=== PATIENT | female | born 1935 | race Caucasian/White ===

== ENCOUNTER 2016-11-21 11:37 | Inpatient (IN) | payer MEDICARE, BC ==
[~2016-11-21] VITALS: Ht 165.1 cm; Wt 45.0 kg
[~2016-11-21 11:37] MED LIST: BIOT5000 PO; CALCTAB70 PO; DEXA4TAB PO; KEPP1000 PO; LEVE250 PO; LORA-474 PO; OCUVTAB4 PO; PANT40TA3 PO; PRAV20 PO; PROT40TA PO; WARF5TAB PO; ZONE100C4 PO; ZONI100C2 PO
[2016-11-21 11:49] VITALS: BP 140/82; PULSE 80; RESP 16; TEMP 98.2; O2SAT 100
[2016-11-21 11:53] VITALS: BP 140/82; PULSE 86; RESP 18; TEMP 98.1; O2SAT 100
--- NOTE | 2016-11-21 11:55 | PD ---
HPI Chief Complaint: Altered Mental Status Time Seen by Provider: 11:49 Travel History International Travel<30 days: No Contact w/Intl Traveler<30days: No Traveled to known affect area: No History of Present Illness HPI 81-year-old female with history of depression, psychosis, seizure disorder, cerebral edema, malignant neoplasm of the brain here for altered mental status. Patient had been a long-term resident at another facility and was recently transferred to [facility] within last 48 hours. Staff there states that patient has been altered, increasingly confused, talking to imaginary friend", constipated and refusing to take medications. Altered. Per family this is not her mental status baseline. Patient is alert to self, but not place or time and is unable to participate with history. She denies any complaints. Patient's daughter called and stated that patient was normal 2 days ago. Apparently she has a history of intracranial mass lesion status post cranial 2 years ago and recently found a small recurrence. She was supposed to start radiation therapy tomorrow. PFSH Past Medical History Hx Anticoagulant Therapy: Yes (COUMADIN) Asthma: No Anxiety: No Depression: No Heart Rhythm Problems: Yes (A FIB ) Cancer: Yes (LUNG/COLON ) Cardiovascular Problems: Yes (HEART MURMUR/ATRIAL FIBULATION NEW DX ) High Cholesterol: No Chest Pain: No Congestive Heart Failure: No COPD: No Cerebrovascular Accident: Yes (UNKNOWN) Diabetes: No Diminished Hearing: No Endocrine: No Gastrointestinal Disorders: Yes (COLON CA 1984 W COLECTOMY) Genitourinary: No Hepatitis: No Hiatal Hernia: No Immune Disorder: No Musculoskeletal: No Neurologic: Yes (SEIZURE, HX MIGRAINES WITH NAUSEA VOMITING) Psychiatric: No Reproductive: No Respiratory: Yes (LUNG CA 1994) Immunizations Current: Yes Migraines: Yes (NEW WITH NEOPLASM) Radiation Therapy: No Seizures: Yes (SEP 1108/2014 FIRST ONE EVER) Sleep Apnea: No Thyroid Disease: No Menopausal: Yes Past Surgical History Abdominal Surgery: Yes (COLON CA -COLECTOMY IN 1984) Appendectomy: Yes Body Medical Devices: BILAT CATARACT SX Cardiac Surgery: No Ear Surgery: No Endocrine Surgery: No Eye Surgery: Yes (CARLOS CATARACT REMOVAL) Genitourinary Surgery: No Hysterectomy: Yes (PARTIAL) Neurologic Surgery: Yes (LEFT CRANIOTOMY FOR NEOPLASM RESECT) Oral Surgery: No Thoracic Surgery: Yes (LLL REMOVAL LUNG CA) Other Surgery: Yes (BRAIN TUMOR/COLON CA/LUNG SURGERY ) Social History Alcohol Use: No Tobacco Use: No (QUIT ) Substance Use: No Allergies-Medications (Allergen,Severity, Reaction): Coded Allergies: Codeine (Verified Allergy, Unknown, Nausea/Vomiting, 12/26/15) NAUSEA VOMITING Contrast Media (Verified Allergy, Unknown, Swelling, 12/26/15) TONGUE SWELLS Morphine (Verified Allergy, Unknown, Nausea/Vomiting, 12/26/15) NAUSEA VOMITING Digoxin (Unverified Adverse Reaction, Mild, Hallucinations, 12/26/15) Reported Meds & Prescriptions Reported Meds & Active Scripts Active Ativan (Lorazepam) 1 Mg Tab 1 Mg PO Q4 As needed for severe anxiety or dyspnea Reported Zonegran (Zonisamide) 100 Mg Cap 200 Mg PO BID Keppra (Levetiracetam) 1,000 Mg Tab 1,000 Mg PO BID Warfarin Sodium 5 mg (Warfarin Sodium) 5 Mg Tab 5 Mg PO DAILY Calcium 600 + D (Calcium Carbonate-Vitamin D) + D Tab 600 Mg PO DAILY Protonix (Pantoprazole Sodium) 40 Mg Tabdr 40 Mg PO DAILY Biotin 5 000 Tab 5,000 Mcg PO DAILY Preservision Areds (Multivitamins/Minerals) Areds Tab 1 Tab PO BID Pravastatin Sodium 20 Mg Tab 20 Mg PO HS Review of Systems ROS Limitations: Altered Mental Status Physical Exam Exam Limitations: Altered Mental Status Narrative GENERAL: Cachectic elderly female in no acute distress SKIN: Warm and dry. HEAD: Atraumatic. Normocephalic. EYES: Pupils equal and round. No scleral icterus. No injection or drainage. ENT: No nasal bleeding or discharge. Mucous membranes pink and moist. NECK: Supple CARDIOVASCULAR: Regular rate and rhythm. No murmur appreciated. RESPIRATORY: No accessory muscle use. Clear to auscultation. Breath sounds equal bilaterally. GASTROINTESTINAL: Abdomen soft, non-tender, nondistended. MUSCULOSKELETAL: Cachectic, range of motion unremarkable NEUROLOGICAL: Awake and alert to self only. Believes she is in rehabilitation and it is in the . No obvious cranial nerve deficits. Motor grossly within normal limits. Normal speech. PSYCHIATRIC: Deferred given mental status Data Data Last Documented VS Vital Signs Date Time Temp Pulse Resp B/P Pulse Ox O2 Delivery O2 Flow Rate FiO2 11/21/16 12:30 14 98 Room Air 11/21/16 11:53 98.1 86 140/82 Orders Electrocardiogram (11/21/16 11:53) Ammonia (11/21/16 11:53) Complete Blood Count With Diff (11/21/16 11:53) Comprehensive Metabolic Panel (11/21/16 11:53) Prothrombin Time / Inr (Pt) (11/21/16 11:53) Act Partial Throm Time (Ptt) (11/21/16 11:53) Troponin I (11/21/16 11:53) Urinalysis - C+S If Indicated (11/21/16 11:53) Ct Brain W/O Iv Contrast(Rout) (11/21/16 11:53) Ecg Monitoring (11/21/16 11:53) Iv Access Insert/Monitor (11/21/16 11:53) Oximetry (11/21/16 11:53) Sodium Chloride 0.9% Flush (Ns Flush) (11/21/16 12:00) Resp Lab Draw Arterial Punctur (11/21/16 ) Urine Culture (11/21/16 13:00) Consult Radiation Oncology (11/21/16 ) Consult Palliative Care (11/21/16 ) Labs Laboratory Tests Test 11/21/16 11/21/16 13:00 13:15 Urine Color YELLOW Urine Turbidity HAZY Urine pH 6.0 Urine Specific [place] 1.018 Urine Protein NEG mg/dL Urine Glucose (UA) NEG mg/dL Urine Ketones NEG mg/dL Urine Occult Blood NEG Urine Nitrite NEG Urine Bilirubin NEG Urine Urobilinogen LESS THAN 2.0 MG/DL Urine Leukocyte Esterase NEG Urine RBC 1 /hpf Urine WBC 1 /hpf Urine Bacteria MANY /hpf Microscopic Urinalysis Comment CATH-CULTURE IND White Blood Count 10.5 TH/MM3 Red Blood Count 4.24 MIL/MM3 Hemoglobin 13.8 GM/DL Hematocrit 40.2 % Mean Corpuscular Volume 94.7 FL Mean Corpuscular Hemoglobin 32.4 PG Mean Corpuscular Hemoglobin 34.2 % Concent Red Cell Distribution Width 13.5 % Platelet Count 163 TH/MM3 Mean Platelet Volume 7.1 FL Neutrophils (%) (Auto) 91.3 % Lymphocytes (%) (Auto) 4.9 % Monocytes (%) (Auto) 3.5 % Eosinophils (%) (Auto) 0.1 % Basophils (%) (Auto) 0.2 % Neutrophils # (Auto) 9.6 TH/MM3 Lymphocytes # (Auto) 0.5 TH/MM3 Monocytes # (Auto) 0.4 TH/MM3 Eosinophils # (Auto) 0.0 TH/MM3 Basophils # (Auto) 0.0 TH/MM3 CBC Comment DIFF FINAL Differential Comment Prothrombin Time 10.7 SEC Prothromb Time International 1.0 RATIO Ratio Activated Partial 26.0 SEC Thromboplast Time Sodium Level 138 MEQ/L Potassium Level 3.7 MEQ/L Chloride Level 107 MEQ/L Carbon Dioxide Level 24.9 MEQ/L Anion Gap 6 MEQ/L Blood Urea Nitrogen 27 MG/DL Creatinine 0.39 MG/DL Estimat Glomerular Filtration 158 ML/MIN Rate Random Glucose 99 MG/DL Calcium Level 8.5 MG/DL Total Bilirubin 0.3 MG/DL Aspartate Amino Transf 18 U/L (AST/SGOT) Alanine Aminotransferase 52 U/L (ALT/SGPT) Alkaline Phosphatase 67 U/L Ammonia 16 MCMOL/L Troponin I LESS THAN 0.02 NG/ML Total Protein 5.9 GM/DL Albumin 2.9 GM/DL [facility] Medical Decision Making Medical Screen Exam Complete: Yes Emergency Medical Condition: Yes Medical Record Reviewed: Yes Differential Diagnosis 81-year-old female with history of depression, psychosis, seizure disorder, cerebral edema, malignant neoplasm of the brain here for altered mental status. Differential includes ICH, CVA, mass lesion, cerebral edema, electrolyte abnormality, UTI, seizure with postictal phase, psychosis. Narrative Course Patient placed on monitor, IV established and blood obtained. A twelve-lead EKG shows sinus rhythm with sinus arrhythmia but no notable ST abnormalities and normal intervals. CBC, CMP, coags, troponin, ammonia, urinalysis were obtained and unremarkable. CT of the brain showed worsening vasogenic edema, from her underlying mass. Patient given Decadron, neurosurgery, radiation oncology and palliative care were consulted and patient will be admitted for further management. Diagnosis Primary Impression: Cerebral edema Additional Impressions: Brain metastases Altered mental status Qualified Code: R41.0 - Delirium Admitting Information Admitting Physician Requests: Admit Carly Childress MD Nov 21, 2016 11:55
[2016-11-21] MEDS ORDERED: SODIUM CHLORIDE 0.9% FLUSH 5 ML FLUSH IVF PRN (12:00)
[2016-11-21 12:30] VITALS: RESP 14; O2SAT 98
--- NOTE | 2016-11-21 13:13 | RADRPT ---
EXAM DATE/TIME: 11/21/2016 12:25 [place] COMPARISON: CT BRAIN W/O CONTRAST, February 19, 2015, 22:41. INDICATIONS: Confusion. RADIATION DOSE: 56.35 CTDIvol (mGy) MEDICAL HISTORY: Cerebrovascular disease. Seizures. Lung, colon, and brain cancer SURGICAL HISTORY: Craniotomy. ENCOUNTER: Initial ACUITY: 1 day PAIN SCALE: 0/10 LOCATION: Cranial TECHNIQUE: Multiple contiguous axial images were obtained of the head. Using automated exposure control and adj ustment of the mA and/or kV according to patient size, radiation dose was kept as low as reasonably a chievable to obtain optimal diagnostic quality images. FINDINGS: Patient has a history of cancer. There is increasing edema high in the left centrum semiovale. Righ t hemisphere is unremarkable. Ventricular size is appropriate. Posterior fossa appears normal. CONCLUSION: Abnormal CT scan of the head with vasogenic edema high in the left centrum semiovale associated with some calcifications. Clifford Molina MD FACR on November 21, 2016 at 12:49 Board Certified Radiologist. This report was verified electronically.
[2016-11-21 13:27] LABS: BACTERIA, URINE MANY /hpf; BLOOD, URINE NEG (NEG); GLUCOSE,URINE NEG (NEG); KETONE, URINE NEG (NEG); NITRITE,URINE NEG (NEG); URINE COLOR YELLOW (YELLW/STRAW)
[2016-11-21 13:28] LABS: COMMENT (UR) CATH-CULTURE IND; CULTURE IF INDICATED CATH CULTURE IND
[2016-11-21 13:33] LABS: AUTOMATED NEUTROPHIL # 9.6 TH/MM3 (1.8-7.7); BASOPHIL % 0.2 % (0.0-2.0); EOSINOPHIL % 0.1 % (0.0-4.0); HEMATOCRIT 40.2 % (35.0-46.0); HEMO FLAGS DIFF FINAL; LYMPH % 4.9 % (9.0-44.0); LYMPHOCYTE # 0.5 TH/MM3 (1.0-4.8); MEAN CELL VOLUME 94.7 FL (80.0-100.0); MEAN CORPUSCULAR HEMOGLOBIN 32.4 PG (27.0-34.0); MEAN CORPUSCULAR HGB CONC 34.2 % (32.0-36.0); MONO % 3.5 % (0.0-8.0); NEUT % 91.3 % (16.0-70.0); PLATELET COUNT 163 TH/MM3 (150-450); RED BLOOD COUNT 4.24 MIL/MM3 (4.00-5.30); RED CELL DISTRIBUTION WIDTH 13.5 % (11.6-17.2); WHITE BLOOD COUNT 10.5 TH/MM3 (4.0-11.0)
[2016-11-21 13:41] LABS: PROTHROMBIN TIME - PATIENT 10.7 SEC (9.8-11.6)
[2016-11-21 14:00] LABS: ALT (GPT) 52 U/L (10-53); ANION GAP 6 MEQ/L (5-15); AST (GOT) 18 U/L (15-37); BICARBONATE 24.9 MEQ/L (21.0-32.0); BLOOD UREA NITROGEN 27 MG/DL (7-18); CHLORIDE 107 MEQ/L (98-107); GLOMERULAR FILTRATION RATE 158 ML/MIN (>89); POTASSIUM 3.7 MEQ/L (3.5-5.1); SODIUM (NA) 138 MEQ/L (136-145)
[2016-11-21 14:03] LABS: ALKALINE PHOSPHATASE 67 U/L (45-117); TOTAL BILIRUBIN ADULT 0.3 MG/DL (0.2-1.0)
[2016-11-21] MEDS ORDERED: DEXAMETHASONE SOD PHOS 20 MG/5 ML VIAL IV PUSH ONE (14:15)
--- NOTE | 2016-11-21 15:01 | HHI.HP ---
[facility] Service Family Medicine Primary Care Physician Britt Pandey MD Admission Diagnosis intracranial mass, AMS, cerebral edema Diagnoses: International Travel<30 Days: No Contact w/Intl Traveler<30days: No Known Affected Area: No History of Present Illness History provided from daughter and documents the [facility] (POA daughter Ebonie [phone]) Patient is an 81-year-old female with a PMH significant for metastatic lung cancer to the brain, COPD, seizures, HTN, GERD, vitamin D deficiency. Per documentation from nursing facility, Present here today from [facility] due to patient acting very confused, talking to imaginary friends, constipation, refusal to take medication. Patient's daughter called her PCP and she was advised to go to the emergency room. I contacted Ebonie who reports the patient has been talking to an imaginary friend for at least 2 days but may have been going on for a longer amount of time. She normally takes Ativan as she reports right sided seizure like activity that may be related to anxiety that is resolved with Ativan. Over the last 2 days, patient was recently transferred to a new living facility due to insurance issues at which time the charge nurse there was concern about the patient's well-being. Last night patient slept well but this morning woke up and continued to talk to her imaginary friends. Daughter is unsure if patient had been receiving her Decadron medication. Today patient reports that she does not have pain only has a headache that she is extremely hungry. She otherwise denies any symptoms. She is oriented to person but not to place. She does know that she is in [place] but not that she is in the hospital. In relation to year, she reports it is 2015 but does not know the month. Review of Systems Other ROS negative 10 except per history of present illness Past Family Social History Past Medical History metastatic lung cancer to the brain. MDD Psychosis Seizure COPD Cerebral edema HLD HTN Vitamin D deficiency A. fib, has been discontinued from warfarin. Does not tolerate digoxin GERD Past Surgical History left frontal craniotomy with resection on 09/27/14 Remaining history was not able to be obtained as patient was a poor historian Reported Medications Reported Meds & Active Scripts Active Ativan (Lorazepam) 1 Mg Tab 1 Mg PO Q4 As needed for severe anxiety or dyspnea Reported Zonegran (Zonisamide) 100 Mg Cap 200 Mg PO BID Keppra (Levetiracetam) 1,000 Mg Tab 1,000 Mg PO BID Warfarin Sodium 5 mg (Warfarin Sodium) 5 Mg Tab 5 Mg PO DAILY Calcium 600 + D (Calcium Carbonate-Vitamin D) + D Tab 600 Mg PO DAILY Protonix (Pantoprazole Sodium) 40 Mg Tabdr 40 Mg PO DAILY Biotin 5 000 Tab 5,000 Mcg PO DAILY Preservision Areds (Multivitamins/Minerals) Areds Tab 1 Tab PO BID Pravastatin Sodium 20 Mg Tab 20 Mg PO HS Allergies: Coded Allergies: Codeine (Verified Allergy, Unknown, Nausea/Vomiting, 12/26/15) NAUSEA VOMITING Contrast Media (Verified Allergy, Unknown, Swelling, 12/26/15) TONGUE SWELLS Morphine (Verified Allergy, Unknown, Nausea/Vomiting, 12/26/15) NAUSEA VOMITING Digoxin (Unverified Adverse Reaction, Mild, Hallucinations, 12/26/15) Family History Remaining history was not able to be obtained as patient was a poor historian Social History Recently transferred from [facility] to [facility] 2 days ago Remaining history was not able to be obtained as patient was a poor historian Physical Exam Vital Signs Vital Signs Date Time Temp Pulse Resp B/P Pulse Ox O2 Delivery O2 Flow Rate FiO2 11/21/16 12:30 14 98 Room Air 11/21/16 11:53 98.1 86 18 140/82 100 Room Air 11/21/16 11:49 98.2 80 16 140/82 100 Physical Exam GENERAL: This is a well-nourished, well-developed patient, in no apparent distress. Well-groomed. SKIN: No rashes, ecchymoses or lesions. Cool and dry. EYES: Pupils equal round and reactive. Extraocular motions intact. No scleral icterus. No injection or drainage. ENT: Nose without bleeding, purulent drainage. Throat without erythema, tonsillar hypertrophy or exudate. Uvula midline. Airway patent. NECK: No lymphadenopathy. CARDIOVASCULAR: Regular rate and rhythm without murmurs, gallops, or rubs. RESPIRATORY: Clear to auscultation. Breath sounds equal bilaterally. No wheezes , rales, or rhonchi. GASTROINTESTINAL: Abdomen soft, non-tender, nondistended. No hepato-splenomegaly , or palpable masses. No guarding. MUSCULOSKELETAL: Extremities without clubbing, cyanosis, or edema. No calf tenderness. NEUROLOGICAL: Awake and alert. Normal speech. Oriented to person. Oriented to state. Thinks its 2016. Able to follow conversation but unable to provide details of history Laboratory Laboratory Tests Test 11/21/16 11/21/16 13:00 13:15 Urine Color YELLOW Urine Turbidity HAZY Urine pH 6.0 Urine Specific [place] 1.018 Urine Protein NEG Urine Glucose (UA) NEG Urine Ketones NEG Urine Occult Blood NEG Urine Nitrite NEG Urine Bilirubin NEG Urine Urobilinogen LESS THAN 2.0 Urine Leukocyte Esterase NEG Urine RBC 1 Urine WBC 1 Urine Bacteria MANY Microscopic Urinalysis Comment CATH-CULTURE IND White Blood Count 10.5 Red Blood Count 4.24 Hemoglobin 13.8 Hematocrit 40.2 Mean Corpuscular Volume 94.7 Mean Corpuscular Hemoglobin 32.4 Mean Corpuscular Hemoglobin 34.2 Concent Red Cell Distribution Width 13.5 Platelet Count 163 Mean Platelet Volume 7.1 Neutrophils (%) (Auto) 91.3 Lymphocytes (%) (Auto) 4.9 Monocytes (%) (Auto) 3.5 Eosinophils (%) (Auto) 0.1 Basophils (%) (Auto) 0.2 Neutrophils # (Auto) 9.6 Lymphocytes # (Auto) 0.5 Monocytes # (Auto) 0.4 Eosinophils # (Auto) 0.0 Basophils # (Auto) 0.0 CBC Comment DIFF FINAL Differential Comment Prothrombin Time 10.7 Prothromb Time International 1.0 Ratio Activated Partial 26.0 Thromboplast Time Sodium Level 138 Potassium Level 3.7 Chloride Level 107 Carbon Dioxide Level 24.9 Anion Gap 6 Blood Urea Nitrogen 27 Creatinine 0.39 Estimat Glomerular Filtration 158 Rate Random Glucose 99 Calcium Level 8.5 Total Bilirubin 0.3 Aspartate Amino Transf 18 (AST/SGOT) Alanine Aminotransferase 52 (ALT/SGPT) Alkaline Phosphatase 67 Ammonia 16 Troponin I LESS THAN 0.02 Total Protein 5.9 Albumin 2.9 Date/Time Procedure Status Source Growth 11/21/16 13:00 Urine Culture Received Urine Catheterized Urine Pending Result Diagram: 11/21/16 1315 11/21/16 1315 Imaging Last Impressions Head CT 11/21/16 1153 Signed Impressions: Service Date/Time: Monday, November 21, 2016 12:25 - CONCLUSION: Abnormal CT scan of the head with vasogenic edema high in the left centrum semiovale associated with some calcifications. Clifford Molina MD FACR Assessment and Plan Assessment and Plan 81-year-old female with a PMH significant for metastatic lung cancer to the brain. Admitted for cerebral edema and AMS. Code Status DNR Discussed Condition With Dr. Richter and Dr. Lai Problem List: (1) Cerebral edema Status: Acute Plan: Initially presented due to history of altered mental status noticed by daughter and nurses at [facility]. Appeared to be having hallucinations. Head CT shows increasing cerebral edema in comparison to the study of 01/2015. RAZA Loomis reports that she has had multiple repeat head CTs and is not sure if this is an accurate representation. Clinically, patient appears quite well but is a very poor historian and is still confused but closer to reported baseline. Does have a hard time answering some questions. -Extensively spoke with RAZA Loomis, daughter, who seems to have a good understanding of prognosis and discussion of possible avenues of treatment. However she does report that her mother does say she wants to fight at times but then does not perform actions of said words. -Vital signs reassuring -UA unremarkable, culture pending -EKG and troponin 1 unremarkable -Elevated BUN/Cr ratio: 27/0.39 -Keppra levels ordered Neurosurgery consulted: Appreciate recommendations Radiation oncology consulted: Appreciate recommendations Palliative care consulted: Appreciate recommendations * Rule out UTI and hypothyroidism as potential causes of delirium * Aggressively treat constipation as this can cause delirium in the elderly, will treat with MiraLAX as patient does not have adequate BM with suppository/ stool softener -After recommendations has been made by all specialists, will need to weigh all options and discuss the best course of action Medications: * Decadron 10mg x1 * Decadron 4mg IV q6hr (2) Altered mental status Status: Acute Plan: Appears to be improved based on history obtained. -See plan above (3) Brain metastases Status: Acute Plan: See plan above (4) Seizure Status: Acute Plan: Daughter reports a history of possible seizures that may be brought on/ related to anxiety as it is associated with right-sided shaking. Typically treated with 1 mg of Ativan as needed -Continued home medications as reported from daughter -Keppra 750 mg BID -Zonisamide 100mg BID -Ativan PRN (5) Nutrition, metabolism, and development symptoms Status: Acute Plan: Diet: Regular, NPO after midnight Electrolytes: Unremarkable Fluids: NS at 80 DVT prophylaxis: SCDs due to presence of cerebral edema and high risk for fall GI prophylaxis: Protonix Physician Certification 2 Midnight Certification Type: Admission for Inpatient Services Order for Inpatient Services The services are ordered in accordance with Medicare regulations or non- Medicare payer requirements, as applicable. In the case of services not specified as inpatient-only, they are appropriately provided as inpatient services in accordance with the 2-midnight benchmark. Estimated LOS (days): 2 days is the estimated time the patient will need to remain in the hospital, assuming treatment plan goals are met and no additional complications. Post-Hospital Plan: Home Problem Qualifiers (1) Altered mental status: Qualified Code: R41.0 - Delirium Argelia Vides MD R2 Nov 21, 2016 15:01
[2016-11-21 15:04] VITALS: BP 126/81; PULSE 65; RESP 16; O2SAT 100
[2016-11-21] MEDS ORDERED: ENALAPRILAT 1.25 MG/ML VIAL IV PRN (15:45)
[2016-11-21] MEDS ORDERED: ONDANSETRON HCL 4 MG/2 ML VIAL IVP PRN (15:45)
[2016-11-21] MEDS ORDERED: NALOXONE HCL 0.4 MG/ML AMP IV PRN (15:45)
[2016-11-21] MEDS ORDERED: SODIUM CHLORIDE 0.9% FLUSH 5 ML FLUSH FLUSH PRN (15:45)
[2016-11-21] MEDS ORDERED: LEXA10TA PO (15:51)
[2016-11-21] MEDS ORDERED: MIRTA15 PO (15:51)
[2016-11-21] MEDS ORDERED: RISP0.5T20 PO (15:51)
[2016-11-21] MEDS ORDERED: ZONI100C2 PO (15:51)
[2016-11-21] MEDS ORDERED: PANT40TA3 PO (15:51)
[2016-11-21] MEDS ORDERED: ESCI10TA PO (15:51)
[2016-11-21] MEDS ORDERED: KEPP750T PO (15:51)
[2016-11-21] MEDS ORDERED: DEXA4TAB PO (15:51)
[2016-11-21] MEDS ORDERED: REME15TA PO ×2 (15:51)
--- NOTE | 2016-11-21 17:55 | PD.CONS ---
Consult Service Palliative Care . Consult Requested By Dr. Childress . Primary Care Physician Britt Pandey MD . Reason for Consultation a. To assist with evaluation and management of symptoms including: back pain ; confusion; depression b. To assist medical decision maker(s) with: better understanding of current medical conditions; weighing benefits/burdens of medical treatment options; making medical treatment decisions. . HPI History of Present Illness Ms. Tolentino is an 81 y/o female with a known history of lung cancer metastatic to the brain as well as COPD, seizures, hypertension, GERD, Vit D deficiency, remote history of breast cancer, remote history of colon cancer, who was sent to the ED from [facility] on 11/21/16 because of confusion (talking to an imaginary friend); refusal to take her medications; and constipation. The patient had just been transferred from [facility] to [facility] on 11/20/16. The changes in mental status were felt to be acute. The patient was diagnosed with lung cancer in 1994 and underwent a resection without associated chemotherapy. Patient had a seizure and other neurologic symptoms in 2013 and was found to have a brain mass, and underwent left frontal craniotomy with resection on 09/27/14. 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 She had recurrent disease and then underwent stereotactic radiosurgery. She presented with a possible seizure in 01/2015 and was found to have what appeared to be vasogenic edema. MRI revealed an increase in the size of the post operative paresh and it was unclear if this was tumor progression or radiation necrosis. She was monitored, but apparently it was ultimately felt to be recurrent disease, and it was decided to proceed with additional radiation. this was going to take start in the next several days when she developed the acute mental changes noted above. Function/Cognitive Trajectory Ms. Tolentino was living alone up until late October 2016. Daughter would visit frequently buying groceries and helping. PT and OT would come to the house but the patient would never practice the exercises. She ambulated with a walker at home. She fell at the end of October and was sent from the ED to [facility]. She was there until the day prior to ED presentation. She developed the increasing confusion while at [facility]. She was transferred to [facility] on 11/20/16. She continued with the confusion and was sent here. Per nursing notes at [facility], the patient requires one person assist for all of her ADLs. She can feed herself once her food is cut up in small pieces. Daughter reports the patient has right sided weakness since her brain surgery and she uses her RUE infrequently causing even more weakness/atrophy. Daughter reports the patient has minor "seizures" which make her very anxious . Lorazepam helps these. Daughter reports there has been about 30 lbs of weight loss in the last year. Weight in May was 107; weight in Jul; weight around 10/26 was 97 lbs. . . Review of Systems ROS Limitations: Clinical Condition (Patient is able to give a partial ROS. Some information from daughter. ) Constitutional: COMPLAINS OF: Fatigue, Weight loss (Reported 30 lb decrease in one year. ), Pain, Generalized weakness, Sleep problems, DENIES: Fever Endocrine: DENIES: Polyuria, Polyphagia Eyes: COMPLAINS OF: Vision loss (wears glasses), DENIES: Double Vision Ears, nose, mouth, throat: DENIES: Hearing loss, Throat pain, Hoarseness, Running Nose, Epistaxis Respiratory: DENIES: Cough, Wheezing, Hemoptysis, Sputum production, Shortness of breath Cardiovascular: DENIES: Chest pain, Palpitations, Dyspnea on Exertion, Lower Extremity Edema Gastrointestinal: COMPLAINS OF: Abdominal pain, Constipation, DENIES: Black stools, Bloody stools, Diarrhea, Nausea, Vomiting, Difficulty Swallowing, Dyspepsia or heartburn, Vomiting blood Genitourinary: COMPLAINS OF: Urinary incontinence (on occasion), Nocturia, DENIES: Hematuria, Dysuria Musculoskeletal: COMPLAINS OF: Back pain, Decreased range of motion, DENIES: Joint pain, Muscle aches, Neck pain Integumentary: DENIES: Pruritus, Rash, Nodules, Non-healing sores Hematologic/Lymphatics: DENIES: Bruising, Lymphadenopathy Immunologic/Allergic: DENIES: Urticaria Neurologic: COMPLAINS OF: Abnormal gait (Uses walker), Localized weakness (Has right arm weakness since ), Seizures, Poor Balance, DENIES: Headache Psychiatric: COMPLAINS OF: Anxiety, Confusion, Depression Past Family Social History Coded Allergies: Codeine (Verified Allergy, Unknown, Nausea/Vomiting, 12/26/15) NAUSEA VOMITING Contrast Media (Verified Allergy, Unknown, Swelling, 12/26/15) TONGUE SWELLS Morphine (Verified Allergy, Unknown, Nausea/Vomiting, 12/26/15) NAUSEA VOMITING Digoxin (Unverified Adverse Reaction, Mild, Hallucinations, 12/26/15) Past Medical History Non-small cell lung cancer 1994 s/p LLL resection but no radiation/chemo at that time Metastatic disease (the lung cancer) to the brain with surgery and recurrences and recurrent edema Hx of colon cancer s/p colectomy in 1984 Seizures (probably secondary to the metastatic brain disease) first occurring in 2013 COPD Hyperlipidemia Hypertension Atrial fibrillation on coumadin Vitamin D deficiency GERD . Past Surgical History Colectomy for colon cancer 1984 LLL resection for non-small cell cancer 1994 Left craniotomy for lung cancer metastasis to brain 2013 Bilateral cataract extraction . Reported Medications Pre-hospital medications include the following: Ativan (Lorazepam) 1 Mg Tab 1 Mg PO Q4 Zonegran (Zonisamide) 100 Mg Cap 200 Mg PO BID Keppra (Levetiracetam) 1,000 Mg Tab 1,000 Mg PO BID Warfarin Sodium 5 mg (Warfarin Sodium) 5 Mg Tab 5 Mg PO DAILY Calcium 600 + D (Calcium Carbonate-Vitamin D) + D Tab 600 Mg PO DAILY Protonix (Pantoprazole Sodium) 40 Mg Tabdr 40 Mg PO DAILY Biotin 5 000 Tab 5,000 Mcg PO DAILY Preservision Areds (Multivitamins/Minerals) Areds Tab 1 Tab PO BID Pravastatin Sodium 20 Mg Tab 20 Mg PO HS . Current Medications Medications (Trade) Dose Ordered Sig/[place] Start Time Stop Time Status Last Admin (NS Flush) 2 ml UNSCH PRN FLUSH 11/21/16 15:45 (NS Flush) 2 ml BID FLUSH 11/21/16 21:00 (Zofran Inj) 4 mg Q6H PRN IVP 11/21/16 15:45 (Narcan Inj) 0.4 mg UNSCH PRN IV 11/21/16 15:45 (Vasotec Inj) 1.25 mg Q6H PRN IV 11/21/16 15:45 (Decadron Inj) 4 mg Q6HR IV PUSH 11/21/16 18:00 (Protonix Inj) 40 mg DAILY IV PUSH 11/21/16 21:00 . Family History * Father probably had colon cancer. * Mother of heart disease * Daughter has breast cancer. . Substance Use Tobacco: Former smoker. Quit when diagnosed with lung cancer. Alcohol: No history of abuse Prescription med abuse: No history of abuse Illicits: No known use of illicits. . Psychosocial History Patient is from [place]. She moved to [place] in 2003. She completed high school . 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 She was once. Her in 2007. She has one daughter , one granddaughter, one grandson, and one great-grandson. She was living alone with help from her daughter up until late Oct 2016. . . Spiritual/Cultural Factors Sabianism. Reports taoist and spirituality are very important to her. . Living Will: Never completed Health Care Surrogate: Completed, but not made available Durable Power of Assembler Final: Completed, but not made available Date completed: Do not know dates on the advance directive documents. . Health Care Surrogate(s): Daughter reports that she is the health care surrogate. . Documented care wishes: No written documentation of health care goals/preferences. . Today's verbally stated goals: Patient was able to tell me she did not want to be resuscitated. . Family/friends goals: Daughter reports that mother's goals have been ambivalent. She has indicated she wants ongoing treatment , but then doesn't want to cooperate with treatment plans, take the recommended medications, etc. . Ethical and Legal Issues Patient has confusion that appears to be improving. It is anticipated that she will regain full capacity to make her own healthcare decisions. . Physical Exam Vital Signs Date Time Temp Pulse Resp B/P Pulse Ox O2 Delivery O2 Flow Rate FiO2 11/21/16 15:04 65 16 126/81 100 Room Air 11/21/16 12:30 14 98 Room Air 11/21/16 11:53 98.1 86 18 140/82 100 Room Air 11/21/16 11:49 98.2 80 16 140/82 100 . Exam CONSTITUTIONAL/GENERAL: This is a thin elderly female in no apparent distress. She was unsure how she got to the ED, but was otherwise able to answer most history questions appropriately. TUBES/LINES/DRAINS: Peripheral IV. SKIN: No jaundice, rashes, or lesions. No wounds seen anteriorly. Skin temperature appropriate. Not diaphoretic. HEAD: Atraumatic. Normocephalic. EYES: Pupils equal and round and reactive. Extraocular motions intact. No scleral icterus. No injection or drainage. Fundi not examined. ENT: Hearing grossly normal. Nose without bleeding or purulent drainage. Throat without visible erythema, exudates, masses, or lesions. NECK: Trachea midline. Supple, nontender. No palpable thyroid enlargement or nodularity. CARDIOVASCULAR: Regular rate and rhythm without murmurs, gallops, or rubs. No JVD. Peripheral pulses symmetric. RESPIRATORY/CHEST: Symmetric, unlabored respirations. Clear to auscultation. Breath sounds equal bilaterally. No wheezes, rales, or rhonchi. GASTROINTESTINAL: Abdomen soft, non-tender, nondistended. No hepato-splenomegaly , or palpable masses. No guarding. Bowel sounds present. GENITOURINARY: Without palpable bladder distension. MUSCULOSKELETAL: Extremities without clubbing, cyanosis, or edema. No joint tenderness or effusion noted. No calf tenderness. No mottling or clubbing. LYMPHATICS: No palpable cervical or supraclavicular adenopathy. NEUROLOGICAL: Awake and alert. Motor and sensory grossly within normal limits. Follows commands. Oriented to person and knows she is in the hospital but unable to tell me why she is here. Moves all extremities. Right upper extremity weakness. PSYCHIATRIC: No obvious anxiety/depression. No apparent hallucinations or other psychotic thought process. . Diagnostic Tests Laboratory Laboratory Tests Test 11/21/16 11/21/16 13:00 13:15 Urine Color YELLOW (YELLW/STRAW) Urine Turbidity HAZY (CLEAR) Urine pH 6.0 (5.0-8.5) Urine Specific [place] 1.018 (1.002-1.035) Urine Protein NEG mg/dL (NEG-TRACE) Urine Glucose (UA) NEG mg/dL (NEG) Urine Ketones NEG mg/dL (NEG) Urine Occult Blood NEG (NEG) Urine Nitrite NEG (NEG) Urine Bilirubin NEG (NEG) Urine Urobilinogen LESS THAN 2.0 MG/DL (LESS THAN 2.0) Urine Leukocyte Esterase NEG (NEG) Urine RBC 1 /hpf (0-3) Urine WBC 1 /hpf (0-5) Urine Bacteria MANY /hpf (NONE) Microscopic Urinalysis Comment CATH-CULTURE IND White Blood Count 10.5 TH/MM3 (4.0-11.0) Red Blood Count 4.24 MIL/MM3 (4.00-5.30) Hemoglobin 13.8 GM/DL (11.6-15.3) Hematocrit 40.2 % (35.0-46.0) Mean Corpuscular Volume 94.7 FL (80.0-100.0) Mean Corpuscular Hemoglobin 32.4 PG (27.0-34.0) Mean Corpuscular Hemoglobin 34.2 % Concent (32.0-36.0) Red Cell Distribution Width 13.5 % (11.6-17.2) Platelet Count 163 TH/MM3 (150-450) Mean Platelet Volume 7.1 FL (7.0-11.0) Neutrophils (%) (Auto) 91.3 % (16.0-70.0) Lymphocytes (%) (Auto) 4.9 % (9.0-44.0) Monocytes (%) (Auto) 3.5 % (0.0-8.0) Eosinophils (%) (Auto) 0.1 % (0.0-4.0) Basophils (%) (Auto) 0.2 % (0.0-2.0) Neutrophils # (Auto) 9.6 TH/MM3 (1.8-7.7) Lymphocytes # (Auto) 0.5 TH/MM3 (1.0-4.8) Monocytes # (Auto) 0.4 TH/MM3 (0-0.9) Eosinophils # (Auto) 0.0 TH/MM3 (0-0.4) Basophils # (Auto) 0.0 TH/MM3 (0-0.2) CBC Comment DIFF FINAL Differential Comment Prothrombin Time 10.7 SEC (9.8-11.6) Prothromb Time International 1.0 RATIO Ratio Activated Partial 26.0 SEC Thromboplast Time (24.3-30.1) Sodium Level 138 MEQ/L (136-145) Potassium Level 3.7 MEQ/L (3.5-5.1) Chloride Level 107 MEQ/L (98-107) Carbon Dioxide Level 24.9 MEQ/L (21.0-32.0) Anion Gap 6 MEQ/L (5-15) Blood Urea Nitrogen 27 MG/DL (7-18) Creatinine 0.39 MG/DL (0.50-1.00) Estimat Glomerular Filtration 158 ML/MIN Rate (>89) Random Glucose 99 MG/DL (74-106) Calcium Level 8.5 MG/DL (8.5-10.1) Total Bilirubin 0.3 MG/DL (0.2-1.0) Aspartate Amino Transf 18 U/L (15-37) (AST/SGOT) Alanine Aminotransferase 52 U/L (10-53) (ALT/SGPT) Alkaline Phosphatase 67 U/L (45-117) Ammonia 16 MCMOL/L (11-32) Troponin I LESS THAN 0.02 NG/ML (0.02-0.05) Total Protein 5.9 GM/DL (6.4-8.2) Albumin 2.9 GM/DL (3.4-5.0) . Result Diagram: 11/21/16 1315 11/21/16 1315 Microbiology Microbiology Date/Time Procedure Status Source Growth 11/21/16 13:00 Urine Culture Received Urine Catheterized Urine Pending Imaging * CT head 11/21/16 shows vasogenic edema high in the left centrum semiovale. . Patient/Family Conference Present at Family Conference: Daughter . Family Conference Time (mins): 25 Family Conference Location: Telephone Issues Discussed: * Additional medical, psychosocial, and spiritual history * Patients general health, functional status, and cognitive changes in the months leading up to the current hospitalization * Patient/family understanding of the current medical problems * Patient/family understanding of prognosis * Patients goals of care as best understood from conversations and/or values * Current medical treatment options and benefits/burdens of those options * Likely scenarios comparing ongoing aggressive care with a transition to comfort measures only * Questions answered to the best of my ability . 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 . (4) Lung cancer Comment: LLL resection in 1994. No further sx until brain met noted in 2013. (5) Colon cancer Comment: Treated with surgery only in 1984. . Symptom Scale: (1) Pain 0-10 Scale: Unable to quantify Comment: No significant pain syndromes. Has intermittent low back pain which she attributes to lying on her back too long. Not on any regular analgesics. . (2) Depression 0-10 Scale: Unable to quantify Comment: Long history of depression. Refuses to see psychiatrist and often refuses to take medication. Daughter thinks her failure to thrive is more due to depression. . (3) Confusion 0-10 Scale: Unable to quantify Pertinent Non-Medical Issues Psychosocial: Lived semi-independently until late Oct 2015. Daughter is primary psychosocial support. Spiritual: Sabianism -- taoist and spirituality are very important to her. Legal: Per daughter, daughter has financial and health Power Of Assembler Final but have not seen documents. Ethical issues impacting care: Patient's capacity to make her own health care decisions independently is currently impaired. Anticpate return of capacity. . Important Contacts * Ebonie Horton (daughter) [phone] . Prognosis Patient is 81 y/o and has lost 30 lbs in one year. It is unclear if the decline is due to the possible recurrent of her brain lesion or is more due to depression and refusal to participate in treatments that might help. Either way , prognosis is poor. Should goals become more comfort oriented she would be a candidate for hospice care. . Code Status: No Code (Patient herself indicated she did not want resuscitation saying that chest compressions "would break her ribs." Daughter agreed.) Plan == Code Status: NO CODE . Patient was able to discuss resuscitation status with me. She said she did not want resuscitation -- "As thin as I am, it would break my ribs." I spoke with daughter who agreed. Daughter indicated her mother may go back and forth her goals in this regard but that we should keep her NO CODE for now. == Decision maker: Patient was acutely confused earlier today. At time of my visit she appeared to be clearing. Until mental status is even clearer, recommend shared decision making with daughter. Daughter says she has both financial and health care power of senior trial attorney. Even if there is no paperwork, she would be the "proxy" as she is the only child and the patient is . == Goals/preferences: Patient seems ambivalent. Daughter reports that patient at times says she wants to continue with treatments including more radiation therapy, but she is unwilling to participate in PT, OT, or take medications to address her depression. Goals/preferences will need to be addressed directly with patient again, when mental status is even clearer. == Pain: Patient has no significant underlying pain syndromes. She has occasional low back pain and rare abdominal pain. She does not use anlagesics on any type of regular basis. == Confusion: Patient was living on her own up until late October 2016. She had periods of very mild confusion. The confusion that brought her to the ED began a few days ago. Possible causes include UTI, constipation, medication reaction at [facility], increased brain edema. The improvement in the ED after bolus steroid administration makes the latter more likely. == Constipation: URMILA manufacturing millwright reported the patient has not defecated in some time and told the daughter that she was "beyond constipated." She was on MOM and colace at [facility] per daughter. == Depression: Daughter reports the patient has been very depressed as she has become more and more dependent. She has refused to take anti-depressants and has refused to get psychiatric help. Steroids may help elevate her mood temporarily here. She had been on mirtazapine but she stopped it on her own. Once off high dose steroids may want to re-try a different anti-depressant if she permits. May also want to consider low dose methylphenidate. First, recommend ruling out hypothyroidism (had elevated TSH here in January 2015) == Seizures: Daughter reports some type of minor "seizure" that doesn't sound like there is tonic/clonic activity or loss of consciousness. Daughter reports patient becomes very anxious with these and lorazepam helps. == Plan * Steroids are addressing brain edema for now * Rule out UTI as possible cause of delirium * Aggressively treat constipation as that alone can cause delirium in the elderly. * Radiation therapy to evaluate and start treatments if increased brain edema is felt to cause acute mental status changes. * If/when patient becomes more alert, she should be capacitated enough to review goals/preferences in more detail. If she truly doesn't want to participate anymore in rehab, occupational therapy, or accept treatment to help her depression, then perhaps a transition to "comfort measures only" would be more appropriate. I have discussed this with daughter and she will also try and discuss with patient.. * TSH was high on 02/19/15 -- will re-check to make sure hypothyroidism is not a contributing factor to mood and failure to thrive. * Would treat her back pain with PRN acetaminophen * Daughter reports that anxiety is helped by lorazepam and lorazepam seems to decrease her mini-seizures. Will prescribe PRN. Time Spent Total Floor Time (mins): 90 (Total floor time included chart review; patient exam; discussion with ED physician; discussion with resident; discussion with attending physician; and above referenced telephone conversation with daughter. ) Face to Face Time (mins): 20 >50% Counseling/Coord of Care: Yes Thank you for the opportunity to participate in the care of Ms. Tolentino. . Attestation To help prompt me to consider important information that might be impacting today's encounter and assessment, information from prior notes written by myself or my colleagues may have been "brought forward" into today's note. My signature on this note, however, is an attestation that I personally performed the exam, history, and/or decision-making noted today, and, unless otherwise indicated, the interactions with patient, family, and staff as well as the review of records all occurred today. I also attest that the listed assessment and stated plan reflect my best clinical judgment today based on the combination of historical information, prior notes, and today's exam/ interactions. When time spent is documented, it refers only to time spent today by the signer, or if indicated, combined time spent today by collaborating physician/nurse practitioner. . Jase Garcia MD Nov 21, 2016 17:54
[2016-11-21] MEDS: DEXAMETHASONE SOD PHOS 4 MG/ML VIAL IV PUSH SCH ×2 (18:40→23:42)
[2016-11-21] MEDS ORDERED: BISACODYL 10 MG SUPP RECTAL ONE (19:15)
[2016-11-21] MEDS ORDERED: BISACODYL 10 MG SUPP RECTAL PRN (19:15)
[2016-11-21] MEDS: DOCUSATE SODIUM 50 MG/SENNA 8.6 MG TAB PO SCH (19:15)
[2016-11-21 19:26] VITALS: BP 117/70; PULSE 94; RESP 16; O2SAT 96
[2016-11-21] MEDS ORDERED: LORazepam 0.5 MG TAB PO PRN (19:30)
[2016-11-21] MEDS ORDERED: LORazepam 2 MG/ML VIAL IV PUSH PRN (19:30)
[2016-11-21] MEDS ORDERED: ACETAMINOPHEN 500 MG CPLT PO PRN (19:30)
[2016-11-21] MEDS: SODIUM CHLORIDE 0.9% FLUSH 5 ML FLUSH FLUSH SCH (19:40)
--- NOTE | 2016-11-21 20:57 | HHI.FPPN ---
Subjective Remarks Attending note: 81-year-old woman admitted through the emergency room with recent change in mental status and increased confusion. Case was discussed with Dr. Jase Garcia and the resident team. 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 Please refer to the resident history and physical for complete discussion of past medical history, social history family history and review of systems. The time of examination the patient was very verbally agitated to say that she did not want to answer any questions, that she been asked these questions multiple times and physician noting no acute distress decided to return later for hopefully more detailed pertinent history. Objective Vitals Vital Signs Date Time Temp Pulse Resp B/P Pulse Ox O2 Delivery O2 Flow Rate FiO2 11/21/16 19:26 94 16 117/70 96 Room Air 11/21/16 15:04 65 16 126/81 100 Room Air 11/21/16 12:30 14 98 Room Air 11/21/16 11:53 98.1 86 18 140/82 100 Room Air 11/21/16 11:49 98.2 80 16 140/82 100 Result Diagram: 11/21/16 1315 11/21/16 1315 Objective Remarks Vital signs noted. Afebrile. Gen. appearance: Youthful appearing octogenarian who makes intermittent eye contact, does not appear to be in any physical distress HEENT: Grossly nonlocalizing. Plan to return for further physical exam details. Please refer to resident history and physical for details of exam. 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 Patient seen and examined. Case reviewed and discussed with resident team. Agree with plan of care as discussed with me and documented in the resident note. Problem List: (1) Cerebral edema Status: Acute Plan: Initially presented due to history of altered mental status noticed by daughter and nurses at shelter. Appeared to be having hallucinations. Head CT shows increasing cerebral edema in comparison to the study of 01/2015. RAZA Loomis reports that she has had multiple repeat head CTs and is not sure if this is an accurate representation. Clinically, patient appears quite well but is a very poor historian and is still confused but closer to reported baseline. Does have a hard time answering some questions. -Extensively spoke with RAZA Loomis, daughter, who seems to have a good understanding of prognosis and discussion of possible avenues of treatment. However she does report that her mother does say she wants to fight at times but then does not perform actions of said words. -Vital signs reassuring -UA unremarkable, culture pending -EKG and troponin 1 unremarkable -Elevated BUN/Cr ratio: 27/0.39 -Keppra levels ordered Neurosurgery consulted: Appreciate recommendations Radiation oncology consulted: Appreciate recommendations Palliative care consulted: Appreciate recommendations * Rule out UTI and hypothyroidism as potential causes of delirium * Aggressively treat constipation as this can cause delirium in the elderly, will treat with MiraLAX as patient does not have adequate BM with suppository/ stool softener -After recommendations has been made by all specialists, will need to weigh all options and discuss the best course of action Medications: * Decadron 10mg x1 * Decadron 4mg IV q6hr (2) Altered mental status Status: Acute Plan: Appears to be improved based on history obtained. -See plan above (3) Brain metastases Status: Acute Plan: See plan above (4) Seizure Status: Acute Plan: Daughter reports a history of possible seizures that may be brought on/ related to anxiety as it is associated with right-sided shaking. Typically treated with 1 mg of Ativan as needed -Continued home medications as reported from daughter -Keppra 750 mg BID -Zonisamide 100mg BID -Ativan PRN (5) Nutrition, metabolism, and development symptoms Status: Acute Plan: Diet: Regular, NPO after midnight Electrolytes: Unremarkable Fluids: NS at 80 DVT prophylaxis: SCDs due to presence of cerebral edema and high risk for fall GI prophylaxis: Protonix Problem Qualifiers (1) Altered mental status: Qualified Code: R41.0 - Delirium Hayden Lai MD Nov 21, 2016 20:56
[2016-11-21] MEDS ORDERED: risperiDONE 0.5 MG TAB PO PRN (21:00)
[2016-11-21] MEDS ORDERED: risperiDONE 0.5 MG TAB PO SCH (21:00)
[2016-11-21] MEDS: levETIRAcetam 250 MG TAB PO SCH (21:50)
[2016-11-21] MEDS: PANTOPRAZOLE SODIUM 40 MG VIAL IV PUSH SCH (21:50)
[2016-11-21] MEDS: ZONISAMIDE 100 MG CAP PO SCH (21:50)
[2016-11-21] MEDS: SODIUM CHLOR 0.9% 1000 ML INJ 1,000 ML IV SCH (21:50)
[2016-11-21 22:00] VITALS: BP 106/70; PULSE 90; RESP 18; TEMP 97.1; O2SAT 97
[2016-11-22] VITALS: BP 110/70; PULSE 90; RESP 17; TEMP 98; O2SAT 98
[2016-11-22 04:15] VITALS: BP 108/68; PULSE 88; RESP 17; TEMP 97.9; O2SAT 97
[2016-11-22] MEDS: DEXAMETHASONE SOD PHOS 4 MG/ML VIAL IV PUSH SCH ×3 (05:07→17:53)
[2016-11-22 07:00] VITALS: BP 129/65; PULSE 74; RESP 20; TEMP 97.8; O2SAT 97
[2016-11-22 08:21] LABS: ALKALINE PHOSPHATASE 60 U/L (45-117); ALT (GPT) 42 U/L (10-53); ANION GAP 8 MEQ/L (5-15); AST (GOT) 12 U/L (15-37); AUTOMATED NEUTROPHIL # 7.1 TH/MM3 (1.8-7.7); BASOPHIL % 0.1 % (0.0-2.0); BICARBONATE 23.2 MEQ/L (21.0-32.0); BLOOD UREA NITROGEN 23 MG/DL (7-18); CHLORIDE 110 MEQ/L (98-107); GLOMERULAR FILTRATION RATE 134 ML/MIN (>89); HEMATOCRIT 38.4 % (35.0-46.0); HEMO FLAGS DIFF FINAL; LYMPHOCYTE # 0.6 TH/MM3 (1.0-4.8); MEAN CELL VOLUME 95.5 FL (80.0-100.0); MEAN CORPUSCULAR HEMOGLOBIN 32.3 PG (27.0-34.0); MEAN CORPUSCULAR HGB CONC 33.8 % (32.0-36.0); NEUT % 89.9 % (16.0-70.0); PLATELET COUNT 188 TH/MM3 (150-450); POTASSIUM 4.1 MEQ/L (3.5-5.1); RED BLOOD COUNT 4.02 MIL/MM3 (4.00-5.30); RED CELL DISTRIBUTION WIDTH 13.9 % (11.6-17.2); SODIUM (NA) 141 MEQ/L (136-145); TOTAL BILIRUBIN ADULT 0.3 MG/DL (0.2-1.0)
[2016-11-22] MEDS: SODIUM CHLORIDE 0.9% FLUSH 5 ML FLUSH FLUSH SCH ×2 (08:33→21:00)
[2016-11-22] MEDS: PANTOPRAZOLE SODIUM 40 MG VIAL IV PUSH SCH (08:34)
[2016-11-22] MEDS: DOCUSATE SODIUM 50 MG/SENNA 8.6 MG TAB PO SCH (08:34)
[2016-11-22] MEDS: SODIUM CHLOR 0.9% 1000 ML INJ 1,000 ML IV SCH ×2 (08:34→22:58)
[2016-11-22] MEDS: levETIRAcetam 250 MG TAB PO SCH ×2 (08:34→22:57)
[2016-11-22] MEDS: ZONISAMIDE 100 MG CAP PO SCH ×2 (08:34→22:57)
--- NOTE | 2016-11-22 11:03 | PD.CONS ---
HPI Service Neurosurgery Consult Requested By Primary Care Physician Britt Pandey MD History of Present Illness Unfortunate 81 yr old lady with hx of lung CA since 1994, hx of left frontal mass resected then radiated, independent until last October, presents with generalized pain and confusion. She has been seen by palliative care. Ct of the brain shows progression of the left frontal edema. She has had RT and stereotactic treatment in the past 2 yrs, is now on increased decadron. ECOG 4 at this time. Review of Systems ROS Limitations: Altered Mental Status, Poor Historian Constitutional: COMPLAINS OF: Fatigue, Weight loss Cardiovascular: COMPLAINS OF: Palpitations Musculoskeletal: COMPLAINS OF: Muscle aches, Stiffness Neurologic: COMPLAINS OF: Localized weakness Past Family Social History Allergies: Coded Allergies: Codeine (Verified Allergy, Unknown, Nausea/Vomiting, 12/26/15) NAUSEA VOMITING Contrast Media (Verified Allergy, Unknown, Swelling, 12/26/15) TONGUE SWELLS Morphine (Verified Allergy, Unknown, Nausea/Vomiting, 12/26/15) NAUSEA VOMITING Digoxin (Unverified Adverse Reaction, Mild, Hallucinations, 12/26/15) Past Medical History Lung CA s/p wedge resection Metastatic CA to the brain as above. Afib Reported Medications Reported Meds & Active Scripts Active Reported Escitalopram (Escitalopram Oxalate) 10 Mg Tab 10 Mg PO DAILY Dexamethasone 4 Mg Tab 4 Mg PO BID Mirtazapine 15 Mg Tab 15 Mg PO DAILY Zonisamide 100 Mg Cap 300 Mg PO BID Risperdal (Risperidone) 0.5 Mg Tab 0.5 Mg PO HS Remeron (Mirtazapine) 15 Mg Tab 15 Mg PO HS Remeron (Mirtazapine) 15 Mg Tab 7.5 Mg PO HS Keppra (Levetiracetam) 750 Mg Tab 750 Mg PO BID Pantoprazole (Pantoprazole Sodium) 40 Mg Tab 40 Mg PO DAILY Lexapro (Escitalopram Oxalate) 10 Mg Tab 10 Mg PO DAILY Social History Unable to live independently at this time. Physical Exam Vital Signs Vital Signs Date Time Temp Pulse Resp B/P Pulse Ox O2 Delivery O2 Flow Rate FiO2 11/22/16 07:00 97.8 74 20 129/65 97 11/22/16 04:15 97.9 88 17 108/68 97 11/22/16 00:00 98.0 90 17 110/70 98 11/21/16 22:00 97.1 90 18 106/70 97 11/21/16 19:26 94 16 117/70 96 Room Air 11/21/16 15:04 65 16 126/81 100 Room Air 11/21/16 12:30 14 98 Room Air 11/21/16 11:53 98.1 86 18 140/82 100 Room Air 11/21/16 11:49 98.2 80 16 140/82 100 Physical Exam Awake but dysphoric lady, complains of generalized pain, speech fluent, affect flat Pupils are equal, cannot perform motor testing, increased tone in the right upper and both lower extremities, No clonus or Babinski. Laboratory Laboratory Tests Test 11/21/16 11/21/16 11/22/16 13:00 13:15 07:30 Urine Color YELLOW Urine Turbidity HAZY Urine pH 6.0 Urine Specific [place] 1.018 Urine Protein NEG Urine Glucose (UA) NEG Urine Ketones NEG Urine Occult Blood NEG Urine Nitrite NEG Urine Bilirubin NEG Urine Urobilinogen LESS THAN 2.0 Urine Leukocyte Esterase NEG Urine RBC 1 Urine WBC 1 Urine Bacteria MANY Microscopic Urinalysis Comment CATH-CULTURE IND White Blood Count 10.5 8.0 Red Blood Count 4.24 4.02 Hemoglobin 13.8 13.0 Hematocrit 40.2 38.4 Mean Corpuscular Volume 94.7 95.5 Mean Corpuscular Hemoglobin 32.4 32.3 Mean Corpuscular Hemoglobin 34.2 33.8 Concent Red Cell Distribution Width 13.5 13.9 Platelet Count 163 188 Mean Platelet Volume 7.1 7.5 Neutrophils (%) (Auto) 91.3 89.9 Lymphocytes (%) (Auto) 4.9 7.0 Monocytes (%) (Auto) 3.5 3.0 Eosinophils (%) (Auto) 0.1 0.0 Basophils (%) (Auto) 0.2 0.1 Neutrophils # (Auto) 9.6 7.1 Lymphocytes # (Auto) 0.5 0.6 Monocytes # (Auto) 0.4 0.2 Eosinophils # (Auto) 0.0 0.0 Basophils # (Auto) 0.0 0.0 CBC Comment DIFF FINAL DIFF FINAL Differential Comment Prothrombin Time 10.7 Prothromb Time International 1.0 Ratio Activated Partial 26.0 Thromboplast Time Sodium Level 138 141 Potassium Level 3.7 4.1 Chloride Level 107 110 Carbon Dioxide Level 24.9 23.2 Anion Gap 6 8 Blood Urea Nitrogen 27 23 Creatinine 0.39 0.45 Estimat Glomerular Filtration 158 134 Rate Random Glucose 99 95 Calcium Level 8.5 8.0 Total Bilirubin 0.3 0.3 Aspartate Amino Transf 18 12 (AST/SGOT) Alanine Aminotransferase 52 42 (ALT/SGPT) Alkaline Phosphatase 67 60 Ammonia 16 Troponin I LESS THAN 0.02 Total Protein 5.9 5.3 Albumin 2.9 2.5 Thyroid Stimulating Hormone 2.460 3rd Gen Date/Time Procedure Status Source Growth 11/21/16 13:00 Urine Culture Received Urine Catheterized Urine Pending Result Diagram: 11/22/16 0730 11/22/16 0730 Imaging Last Impressions Head CT 11/21/16 1153 Signed Impressions: Service Date/Time: Monday, November 21, 2016 12:25 - CONCLUSION: Abnormal CT scan of the head with vasogenic edema high in the left centrum semiovale associated with some calcifications. Clifford Molina MD FACR Assessment and Plan Diagnosis: (1) Brain metastases Plan: CT shows increased edema which should respond to the increased decadron dose. Hospice consulted because of poor ECOG status. Palliative care following [address] Nov 22, 2016 11:03
[2016-11-22 12:10] VITALS: BP 128/71; PULSE 66; RESP 20; TEMP 97.4; O2SAT 97
--- NOTE | 2016-11-22 13:17 | HHI.FPPN ---
Subjective Remarks No events overnight. Afebrile, vitals are stable. Patients only complaint this morning is of mid back pain. She was speaking to her daughter over the phone. Denies confusion or headaches. She would not answer all questions due to her mood. (Lefty Richter MD R1) Objective Vitals Vital Signs Date Time Temp Pulse Resp B/P Pulse Ox O2 Delivery O2 Flow Rate FiO2 11/22/16 12:10 97.4 66 20 128/71 97 11/22/16 07:00 97.8 74 20 129/65 97 11/22/16 04:15 97.9 88 17 108/68 97 11/22/16 00:00 98.0 90 17 110/70 98 11/21/16 22:00 97.1 90 18 106/70 97 11/21/16 19:26 94 16 117/70 96 Room Air 11/21/16 15:04 65 16 126/81 100 Room Air I/O 11/21/16 11/21/16 11/21/16 11/22/16 11/22/16 11/22/16 07:00 15:00 23:00 07:00 15:00 23:00 Intake Total 200 ml 250 ml Balance 200 ml 250 ml Intake Oral 200 ml 250 ml # Voids 0 2 # Bowel Movements 0 0 (Lefty Richter MD R1) Result Diagram: 11/22/16 0730 11/22/16 0730 Objective Remarks GENERAL: NAD SKIN: No rashes, ecchymoses or lesions. Cool and dry. EYES: Extraocular motions intact. No scleral icterus. No injection or drainage. CARDIOVASCULAR: Regular rate and rhythm without murmurs, gallops, or rubs. RESPIRATORY: Clear to auscultation. Breath sounds equal bilaterally. No wheezes , rales, or rhonchi. GASTROINTESTINAL: Abdomen soft, non-tender, nondistended. No guarding. MUSCULOSKELETAL: Extremities without edema. No calf tenderness. NEUROLOGICAL: Awake and alert. Normal speech. Oriented to person. Able to follow conversation. (Lefty Richter MD R1) A/P Assessment and Plan 81-year-old female with a PMH significant for metastatic lung cancer to the brain. Admitted for cerebral edema and AMS. (Lefty Richter MD R1) Assessment and Plan Attending note patient seen and examined with the resident team. Case reviewed and discussed with resident team. Agree with plan of care as discussed with me and documented in the resident note. (Hayden Lai MD) Problem List: (1) Cerebral edema Status: Acute Plan: Initially presented due to history of altered mental status noticed by daughter and nurses at [facility]. Appeared to be having hallucinations. Head CT shows increasing cerebral edema in comparison to the study of 01/2015. RAZA Loomis reports that she has had multiple repeat head CTs and is not sure if this is an accurate representation. Clinically, patient appears quite well but is a very poor historian and is still confused but closer to reported baseline. Does have a hard time answering some questions. -Extensively spoke with RAZA Loomis, daughter, who seems to have a good understanding of prognosis and discussion of possible avenues of treatment. However she does report that her mother does say she wants to fight at times but then does not perform actions of said words. -Vital signs reassuring -UA unremarkable, culture still pending -EKG and troponin 1 unremarkable -Elevated BUN/Cr ratio: 23/0.45 -Keppra levels ordered Neurosurgery consulted: Appreciate recommendations Radiation oncology consulted: Appreciate recommendations Palliative care consulted: Appreciate recommendations * Rule out UTI and hypothyroidism as potential causes of delirium * TSH within normal limits * Aggressively treat constipation as this can cause delirium in the elderly, will treat with MiraLAX as patient does not have adequate BM with suppository/ stool softener -After recommendations has been made by all specialists, will need to weigh all options and discuss the best course of action Medications: * Decadron 10mg x1 * Decadron 4mg IV q6hr (2) Altered mental status Status: Resolved Plan: Appears to be improved based on history obtained - Plan as above (3) Brain metastases Status: Acute Plan: See plan above (4) Seizure Status: Acute Plan: Daughter reports a history of possible seizures that may be brought on/ related to anxiety as it is associated with right-sided shaking. Typically treated with 1 mg of Ativan as needed -Continued home medications as reported from daughter -Keppra 750 mg BID -Zonisamide 100mg BID -Ativan PRN (5) Nutrition, metabolism, and development symptoms Status: Acute Plan: Diet: Regular Electrolytes: Unremarkable Fluids: NS at 80 mL/hr DVT prophylaxis: SCDs due to presence of cerebral edema and high risk for fall GI prophylaxis: Protonix (Lefty Richter MD R1) Problem Qualifiers (1) Altered mental status: Qualified Code: R41.0 - Delirium Lefty Richter MD R1 Nov 22, 2016 13:17 Hayden Lai MD Nov 24, 2016 11:01
[2016-11-22 16:56] VITALS: BP 107/59; PULSE 92; RESP 20; TEMP 97.8; O2SAT 95
[2016-11-22] MEDS: ACETAMINOPHEN 1000 MG/100 ML VIAL IV PRN (17:54)
[2016-11-22 20:00] VITALS: BP 112/62; PULSE 72; RESP 16; TEMP 97.5; O2SAT 95
[2016-11-23] VITALS (8 sets, daily range): BP systolic 128–145; BP diastolic 73–89; PULSE 63–93; RESP 18–20; TEMP 97.3–99; O2SAT 93–98
[2016-11-23] MEDS: DEXAMETHASONE SOD PHOS 4 MG/ML VIAL IV PUSH SCH ×4 (00:09→22:16)
[2016-11-23] MEDS: ACETAMINOPHEN 1000 MG/100 ML VIAL IV PRN (00:31)
[2016-11-23] MEDS: cefTRIAXone INJ 1,000 MG in SODIUM CHLORIDE 0.9% INJ 100 ML IV SCH ×2 (09:00→09:50)
[2016-11-23] MEDS: SODIUM CHLORIDE 0.9% FLUSH 5 ML FLUSH FLUSH SCH ×2 (09:00→21:00)
[2016-11-23] MEDS: SODIUM CHLOR 0.9% 1000 ML INJ 1,000 ML IV SCH (09:44)
[2016-11-23] MEDS: levETIRAcetam 250 MG TAB PO SCH ×2 (09:49→21:00)
[2016-11-23] MEDS: ZONISAMIDE 100 MG CAP PO SCH ×2 (09:49→21:00)
[2016-11-23] MEDS: DOCUSATE SODIUM 50 MG/SENNA 8.6 MG TAB PO SCH (09:49)
[2016-11-23] MEDS: PANTOPRAZOLE SODIUM 40 MG VIAL IV PUSH SCH (09:50)
--- NOTE | 2016-11-23 10:03 | HHI.FPPN ---
Subjective Remarks No acute events overnight. Vital signs unremarkable. Patient keeps refusing treatment and saying that she just wants to go home. Patient denies any pain. Objective Vitals Vital Signs Date Time Temp Pulse Resp B/P Pulse Ox O2 Delivery O2 Flow Rate FiO2 11/23/16 08:19 97.3 63 18 139/89 97 11/23/16 04:00 98.7 72 18 132/89 98 11/23/16 01:06 18 11/23/16 00:00 97.7 70 20 128/73 93 11/22/16 20:00 97.5 72 16 112/62 95 11/22/16 16:56 97.8 92 20 107/59 95 11/22/16 12:10 97.4 66 20 128/71 97 I/O 11/22/16 11/22/16 11/22/16 11/23/16 11/23/16 11/23/16 07:00 15:00 23:00 07:00 15:00 23:00 Intake Total 250 ml 480 ml 893 ml 811 ml Output Total 0 ml Balance 250 ml 480 ml 893 ml 811 ml Intake Oral 250 ml 118 ml IV Total 480 ml 893 ml 693 ml Output Stool Total 0 ml # Voids 2 1 2 2 # Bowel Movements 0 1 Result Diagram: 11/22/1672911/22/16729 Objective Remarks GEN: Well-developed, well-nourished patient. No acute distress. Resting comfortably in the bed. CV: Regular rate and rhythm without obvious murmurs LUNGS: Clear to auscultation bilaterally. Normal respiratory effort. No wheezes , rales, rhonchi. EXT: No edema. No calf tenderness. NEURO/PSYCH: Awake, alert. Normal speech. Patient is not trusting of anything that I say. A/P Assessment and Plan 81-year-old female with a PMH significant for metastatic lung cancer to the brain. Admitted for cerebral edema and AMS. Discharge Planning Tomorrow to [facility] with hospice -Updated daughter about situation dw Dr. Lai Problem List: (1) Cerebral edema Status: Acute Plan: Initially presented due to history of altered mental status noticed by daughter and nurses at [facility]. Appeared to be having hallucinations. Head CT shows increasing cerebral edema in comparison to the study of 01/2015. RAZA Gallardoa reports that she has had multiple repeat head CTs and is not sure if this is an accurate representation. Clinically, patient appears quite well but is undressing of providers except for Dr. Santana. -Patient refusing treatment including Decadron and Rocephin -Keppra levels ordered: pending Neurosurgery consulted: Appreciate recommendations * consulted Hospice Hospice consulted: appreciate assistance * will receive hospice at [facility] once discharged Radiation oncology consulted: Appreciate recommendations Palliative care consulted: Appreciate recommendations * Rule out UTI and hypothyroidism as potential causes of delirium * TSH within normal limits * Aggressively treat constipation as this can cause delirium in the elderly Medications: * Decadron 10mg x1 * Decreased decadron to 4mg q8 with a plan to taper down to home dose of Dexamethasone 4mg PO BID (2) UTI (urinary tract infection) Status: Acute Plan: -Urine culture: strep viridans -Rocephin (11/23-refusing treatment) (3) Altered mental status Status: Resolved Plan: Appears to be improved based on history obtained - Plan as above (4) Brain metastases Status: Acute Plan: See plan above (5) Seizure Status: Acute Plan: Daughter reports a history of possible seizures that may be brought on/ related to anxiety as it is associated with right-sided shaking. Typically treated with 1 mg of Ativan as needed -Continued home medications as reported from daughter -Keppra 750 mg BID -Zonisamide 100mg BID -Ativan PRN (6) Nutrition, metabolism, and development symptoms Status: Acute Plan: Diet: Regular Electrolytes: Unremarkable Fluids: discontinued fluids DVT prophylaxis: SCDs due to presence of cerebral edema and high risk for fall GI prophylaxis: Protonix Problem Qualifiers (1) Altered mental status: Qualified Code: R41.0 - Delirium Argelia Vides MD R2 Nov 23, 2016 10:03 Qualified Code: R41.0 - Delirium Argelia Vides MD R2 Nov 23, 2016 10:03
[2016-11-23] MEDS ORDERED: levETIRAcetam INJ 750 MG in SODIUM CHLORIDE 0.9% INJ 100 ML IV SCH (22:00)
[2016-11-23] MEDS: levETIRAcetam INJ 750 MG in SODIUM CHLORIDE 0.9% INJ 100 ML IV SCH (22:21)
[2016-11-24] MEDS: DEXAMETHASONE SOD PHOS 4 MG/ML VIAL IV PUSH SCH ×2 (04:53→13:53)
[2016-11-24 04:59] VITALS: BP 172/86; PULSE 86; RESP 20; TEMP 97.6; O2SAT 96
[2016-11-24 05:07] VITALS: BP 158/83; PULSE 83
[2016-11-24 08:00] VITALS: BP 149/87; PULSE 72; RESP 16; TEMP 97; O2SAT 94
[2016-11-24] MEDS: DOCUSATE SODIUM 50 MG/SENNA 8.6 MG TAB PO SCH (09:00)
[2016-11-24 09:17] LABS: BICARBONATE 25.2 MEQ/L (21.0-32.0); POTASSIUM 3.9 MEQ/L (3.5-5.1)
[2016-11-24] MEDS: ZONISAMIDE 100 MG CAP PO SCH (09:41)
[2016-11-24] MEDS: cefTRIAXone INJ 1,000 MG in SODIUM CHLORIDE 0.9% INJ 100 ML IV SCH (09:42)
[2016-11-24] MEDS: PANTOPRAZOLE SODIUM 40 MG VIAL IV PUSH SCH (09:42)
[2016-11-24] MEDS: SODIUM CHLORIDE 0.9% FLUSH 5 ML FLUSH FLUSH SCH (09:43)
[2016-11-24] MEDS: levETIRAcetam INJ 750 MG in SODIUM CHLORIDE 0.9% INJ 100 ML IV SCH (10:42)
--- NOTE | 2016-11-24 12:20 | HHI.FPPN ---
Subjective Remarks Overnight there was report that the patient was refusing to take her PO medications. Keppra was switched to IV. This AM she appears comfortable lying in bed. She does not answer all questions due to her depressed/irritated mood. She does not report any complaints other than her mid-back pain. Our team had a discussion with her regarding her goals and options moving forward, she is agreeable to hospice however states she believe her previous [facility] will not accept her back. We informed her that we have kept in touch with her daughter. Patient does not express any concerns or changes to plans she desires in terms of placement. (Lefty Richter MD R1) Objective Vitals Vital Signs Date Time Temp Pulse Resp B/P Pulse Ox O2 Delivery O2 Flow Rate FiO2 11/24/16 08:00 97.0 72 16 149/87 94 11/24/16 05:07 83 158/83 11/24/16 04:59 97.6 86 20 172/86 96 11/23/16 23:56 97.3 93 20 135/84 96 11/23/16 20:41 97.8 86 19 145/82 94 11/23/16 16:00 97.4 76 18 138/75 96 I/O 11/23/16 11/23/16 11/23/16 11/24/16 11/24/16 11/24/16 07:00 15:00 23:00 07:00 15:00 23:00 Intake Total 893 ml 1171 ml 1690 ml Output Total 200 ml Balance 893 ml 1171 ml 1690 ml -200 ml Intake Oral 478 ml IV Total 893 ml 693 ml 1690 ml Output Urine Total 200 ml # Voids 2 3 3 # Bowel Movements 1 2 1 (Lefty Richter MD R1) Result Diagram: 11/22/16 0730 11/24/16 0807 Objective Remarks GEN: No acute distress. Resting comfortably in the bed. CV: Regular rate and rhythm without obvious murmurs LUNGS: Clear to auscultation bilaterally. Normal respiratory effort. No wheezes , rales, rhonchi. EXT: No edema. No calf tenderness. NEURO/PSYCH: Awake, alert. Normal speech. (Lefty Richter MD R1) A/P Assessment and Plan 81-year-old female with a PMH significant for metastatic lung cancer to the brain. Admitted for cerebral edema and AMS. Discharge Planning Stable for discharge today. Hospice arranging. Daughter is aware. sdw Dr. Lai (Lefty Richter MD R1) Assessment and Plan Patient was seen and examined with resident team. Case was discussed and reviewed with the resident team. Physician agrees with plan of care is discussed with me and documented in the resident note. (Hayden Lai MD) Problem List: (1) Cerebral edema Status: Acute Plan: Initially presented due to history of altered mental status noticed by daughter and nurses at skilled nursing. Appeared to be having hallucinations. Head CT shows increasing cerebral edema in comparison to the study of 01/2015. RAZA Loomis reports that she has had multiple repeat head CTs and is not sure if this is an accurate representation. Clinically, patient appears quite well but is undressing of providers except for Dr. Santana. -Patient refusing treatment including Decadron and Rocephin -Keppra levels ordered: still pending Neurosurgery consulted: Appreciate recommendations * consulted Hospice Hospice consulted: appreciate assistance Radiation oncology consulted: Appreciate recommendations Palliative care consulted: Appreciate recommendations * Rule out UTI and hypothyroidism as potential causes of delirium * TSH within normal limits * Aggressively treat constipation as this can cause delirium in the elderly Medications: * Decadron 10mg IV x1 in ED * Decreased decadron to 4mg IV q8 with a plan to taper down to 4mg PO tid (2) UTI (urinary tract infection) Status: Acute Plan: -Urine culture: strep viridans -Rocephin (11/23-refusing treatment) -Will discharge with an additional 4 days of Amoxicillin 500 mg po TID (3) Altered mental status Status: Resolved Plan: Appears to be improved based on history obtained - Plan as above (4) Brain metastases Status: Acute Plan: See plan above (5) Seizure Status: Acute Plan: Daughter reports a history of possible seizures that may be brought on/ related to anxiety as it is associated with right-sided shaking. Typically treated with 1 mg of Ativan as needed -Continued home medications as reported from daughter -Keppra 1000 mg po bid -Zonisamide 300 mg po bid -Ativan PRN (6) Nutrition, metabolism, and development symptoms Status: Acute Plan: Diet: Regular Electrolytes: Unremarkable Fluids: discontinued fluids DVT prophylaxis: SCDs due to presence of cerebral edema and high risk for fall GI prophylaxis: Protonix mg po daily (Lefty Richter MD R1) Problem Qualifiers (1) Altered mental status: Qualified Code: R41.0 - Delirium Lefty Richter MD R1 Nov 24, 2016 12:20 Hayden Lai MD Nov 25, 2016 13:32
[2016-11-24 12:30] VITALS: BP 145/95; PULSE 111; RESP 16; TEMP 96.9; O2SAT 95
[2016-11-24] MEDS ORDERED: SENN1TAB PO (13:54)
[2016-11-24] MEDS ORDERED: LORA-392 PO (13:54)
[2016-11-24] MEDS ORDERED: ASPI1TAB69 PO (13:55)
[2016-11-24] MEDS ORDERED: DEXA4TAB PO (14:01)
[2016-11-24] MEDS ORDERED: AMOX500C PO (14:01)
--- NOTE | 2016-11-24 14:01 | HHI.DCPOC ---
Discharge Care Plan Diagnosis: (1) Cerebral edema (2) Brain metastases (3) Lung cancer (4) Colon cancer Goals to Promote Your Health * To prevent worsening of your condition and complications * To maintain your health at the optimal level Directions to Meet Your Goals Take your medications as prescribed Follow your dietary instruction Follow activity as directed Keep your appointments as scheduled Take your immunizations and boosters as scheduled If your symptoms worsen call your PCP, if no PCP go to Urgent Care Center or Emergency Room Smoking is Dangerous to Your Health. Avoid second hand smoke Call the 24-hour hour crisis hotline for domestic abuse at Lefty Richter MD R1 Nov 24, 2016 14:01
[2016-11-24] MEDS ORDERED: KEPP10002 PO (14:35)
[2016-11-24 16:00] VITALS: BP 159/91; PULSE 68; RESP 17; TEMP 96.5; O2SAT 93
--- NOTE | 2016-11-24 17:16 | HHI.DS ---
Discharge Summary Admission Date Nov 21, 2016 at 14:26 Discharge Date: Nov 24, 2016 Admitting Diagnosis intracranial mass, AMS, cerebral edema (1) Cerebral edema Diagnosis: Principal Plan: Initially presented due to history of altered mental status noticed by daughter and nurses at [facility]. Appeared to be having hallucinations. Head CT shows increasing cerebral edema in comparison to the study of 01/2015. RAZA Loomsi reports that she has had multiple repeat head CTs and is not sure if this is an accurate representation. Clinically, patient appears quite well but is undressing of providers except for Dr. Santana. -Patient refusing treatment including Decadron and Rocephin -Keppra levels ordered: still pending Neurosurgery consulted: Appreciate recommendations * consulted Hospice Hospice consulted: appreciate assistance Radiation oncology consulted: Appreciate recommendations Palliative care consulted: Appreciate recommendations * Rule out UTI and hypothyroidism as potential causes of delirium * TSH within normal limits * Aggressively treat constipation as this can cause delirium in the elderly Medications: * Decadron 10mg IV x1 in ED * Decreased decadron to 4mg IV q8 with a plan to taper down to 4mg PO tid (2) UTI (urinary tract infection) Diagnosis: Principal Plan: -Urine culture: strep viridans -Rocephin (11/23-refusing treatment) -Will discharge with an additional 4 days of Amoxicillin 500 mg po TID (3) Altered mental status Diagnosis: Principal Plan: Appears to be improved based on history obtained - Plan as above (4) Brain metastases Diagnosis: Principal Plan: See plan above (5) Seizure Diagnosis: Secondary Plan: Daughter reports a history of possible seizures that may be brought on/ related to anxiety as it is associated with right-sided shaking. Typically treated with 1 mg of Ativan as needed -Continued home medications as reported from daughter -Keppra 1000 mg po bid -Zonisamide 300 mg po bid -Ativan PRN (6) Nutrition, metabolism, and development symptoms Diagnosis: Secondary Plan: Diet: Regular Electrolytes: Unremarkable Fluids: discontinued fluids DVT prophylaxis: SCDs due to presence of cerebral edema and high risk for fall GI prophylaxis: Protonix mg po daily Consultants Palliative care, neurosurgery, hospice Brief History History provided from daughter and documents the patient had arrived with from [facility]. (POA daughter Ebonie [phone]) Patient is an 81-year-old female with a PMH significant for metastatic lung cancer to the brain, COPD, seizures, HTN, GERD, vitamin D deficiency. Per documentation from nursing facility, Present here today from [facility] due to patient acting very confused, talking to imaginary friends, constipation, refusal to take medication. Patient's daughter called her PCP and she was advised to go to the emergency room. I contacted Ebonie who reports the patient has been talking to an imaginary friend for at least 2 days but may have been going on for a longer amount of time. She normally takes Ativan as she reports right sided seizure like activity that may be related to anxiety that is resolved with Ativan. Over the last 2 days, patient was recently transferred to a new living facility due to insurance issues at which time the charge nurse there was concern about the patient's well-being. Last night patient slept well but this morning woke up and continued to talk to her imaginary friends. Daughter is unsure if patient had been receiving her Decadron medication. Today patient reports that she does not have pain only has a headache that she is extremely hungry. She otherwise denies any symptoms. She is oriented to person but not to place. She does know that she is in [place] but not that she is in the hospital. In relation to year, she reports it is 2015 but does not know the month. CBC/BMP: 11/22/16 0730 11/24/16 0807 Significant Findings Laboratory Tests Test 11/22/16 11/24/16 07:30 08:07 Neutrophils (%) (Auto) 89.9 % (16.0-70.0) Lymphocytes (%) (Auto) 7.0 % (9.0-44.0) Lymphocytes # (Auto) 0.6 TH/MM3 (1.0-4.8) Chloride Level 110 MEQ/L (98-107) Blood Urea Nitrogen 23 MG/DL (7-18) 19 MG/DL (7-18) Creatinine 0.45 MG/DL (0.50-1.00) Calcium Level 8.0 MG/DL 8.3 MG/DL (8.5-10.1) (8.5-10.1) Aspartate Amino Transf 12 U/L (15-37) (AST/SGOT) Total Protein 5.3 GM/DL (6.4-8.2) Albumin 2.5 GM/DL (3.4-5.0) Imaging Head CT: Vasogenic edema high in the left centrum semiovale associated with some calcifications PE at Discharge GEN: No acute distress. Resting comfortably in the bed. CV: Regular rate and rhythm without obvious murmurs LUNGS: Clear to auscultation bilaterally. Normal respiratory effort. No wheezes , rales, rhonchi. EXT: No edema. No calf tenderness. NEURO/PSYCH: Awake, alert. Normal speech. Hospital Course Patient was given Decadron 10 mg IV in the ED. She was continued with Decadron 4 mg IV every 6 hours throughout stay. Patient medically remained stable while hospitalized. She remained at what is her baseline mental status. Her mood was depressed, however her goals were assessed on multiple occasions by our primary team as well as palliative medicine. Patient and family decided to pursue hospice, radiation therapy was consulted however will not pursue any radiation therapy. Pt Condition on Discharge: Stable Discharge Disposition: Hospice/ Home Discharge Instructions DIET: Follow Instructions for: As Tolerated, No Restrictions Activities you can perform: Weight Bearing as Katelyn Follow up Referrals: PCP Follow-up - 1 Week New Medications: Amoxicillin (Amoxicillin) 500 Mg Cap 500 MG PO TID Infection #12 Ref 0 CAP Aspirin (Aspirin) 81 Mg Tabdr 81 MG PO DAILY #30 Ref 0 TAB Dexamethasone (Dexamethasone) 4 Mg Tab 4 MG PO TID PRN Take 3 times daily scheduled #90 Ref 1 TAB Levetiracetam (Keppra) 1,000 Mg Tab 1000 MG PO BID Control Seizures #60 Ref 0 TAB Lorazepam (Ativan) 0.5 Mg Tab 0.5 MG PO Q6H PRN anxiety #90 Ref 0 TAB Sennosides-Docusate Sodium (Senna Plus 8.6-50 mg) 1 Tab Tab 1 TAB PO DAILY #30 Ref 0 TAB Continued Medications: Escitalopram (Lexapro) 10 Mg Tab 10 MG PO DAILY #30 Ref 0 TAB Mirtazapine (Remeron) 15 Mg Tab 15 MG PO HS Depression Control #30 Ref 0 TAB Pantoprazole (Pantoprazole) 40 Mg Tab 40 MG PO DAILY Reflux #30 Ref 0 TAB Risperidone (Risperdal) 0.5 Mg Tab 0.5 MG PO HS #30 Ref 0 TAB Zonisamide (Zonisamide) 100 Mg Cap 300 MG PO BID Control Seizures #60 Ref 0 CAP Discontinued Medications: Dexamethasone (Dexamethasone) 4 Mg Tab 4 MG PO BID #60 Ref 0 TAB Escitalopram (Escitalopram) 10 Mg Tab 10 MG PO DAILY #30 Ref 0 TAB Levetiracetam (Keppra) 750 Mg Tab 750 MG PO BID Control Seizures #60 Ref 0 TAB Mirtazapine (Remeron) 15 Mg Tab 7.5 MG PO HS Depression Control #15 Ref 0 TAB Mirtazapine (Mirtazapine) 15 Mg Tab 15 MG PO DAILY Depression Control #30 Ref 0 TAB Lefty Richter MD R1 Nov 24, 2016 17:16
--- NOTE | 2016-11-24 23:52 | EKG ---
Date Performed: 11/21/2016 Time Performed: 12:05:51 PTAGE: 81 years EKG: Sinus rhythm WITH MARKED SINUS ARRHYTHMIA LEFT ATRIAL ENLARGEMENT ABNORMAL ECG PREVIOUS TRACING : 02/19/2015 22.32 DOCTOR: Kolton Dubose Interpretating Date/Time 11/24/2016 23:52:09
[2016-11-25] MEDS ORDERED: PANTOPRAZOLE SOD 40 MG DELAYED RELEASE TAB PO SCH (09:00)
--- NOTE | 2016-11-27 07:55 | RF ---
cc: TALIA SANTANA MD,BELINDA Lopez M.D. F o l [facility] o w u [facility] R e p o r t DATE OF SERVICE: 11/21/2016 AGE: 81 SEX: F Ms. Tolentino is an 81-year-old female. She has a history of a metastatic [id number] lung cancer brain resection. She has, what seems like, progressive recurrence, slow deterioration, sometimes some confusion, some edema. We consider doing stereotactic radiotherapy. Discussion today seen in the ER. We will delay that a few days to see how she does. She is able to follow some instructions, some not. She was able to answer some questions on direct questioning and some confusion. We discussed with her daughter as well and she has good insight into her mother's disease status in terms of treatment recommendations or support such as hospice palliative care. No treatment. She could consider steroids. We will follow her course. PLAN We plan on seeing her in follow-up in approximately one week in terms of proceeding with treatment or not. Of note, head CT 11/21/2016 demonstrating some intracranial edema. NOTE: She will pursue hospice we have been notified and not pursue radiation therapy at this time. Talia Santana MD Radiation Oncologist NEFTALI/SHY /5:23 PM /7:42 AM MTDSharon
== END 2016-11-24 17:24 | disposition hospice, home (50) | DRG 81 ==
LOC: NEPE 11:37 → NEDA 14:26 → NEDH 18:29 → N05A 20:46
PROVIDERS: ADMIT Family Medicine; ATTEND Family Medicine
DX: G93.6 Cerebral edema (principal); C79.31 Secondary malignant neoplasm of brain; I48.91 Unspecified atrial fibrillation; J44.9 Chronic obstructive pulmonary disease, unspecified; G40.909 Epilepsy, unspecified, not intractable, without status epilepticus; R62.7 Adult failure to thrive; Z90.2 Acquired absence of lung [part of]; E78.5 Hyperlipidemia, unspecified; K21.9 Gastro-esophageal reflux disease without esophagitis; K59.00 Constipation, unspecified; I10 Essential (primary) hypertension; Z85.038 Personal history of other malignant neoplasm of large intestine; Z85.118 Personal history of other malignant neoplasm of bronchus and lung; Z85.3 Personal history of malignant neoplasm of breast; Z51.5 Encounter for palliative care; Z66 Do not resuscitate; F32.9 Major depressive disorder, single episode, unspecified; Z79.01 Long term (current) use of anticoagulants; Z87.891 Personal history of nicotine dependence
CPT/HCPCS: 36600; 70450; 80048; 80053; 80177; 81001; 82140; 84443; 84484; 85025; 85610; 85730; 87086; 93005; C9113; J0131; J0696; J1100; J1953; J7030